=== PATIENT | male | born 1975 | race Caucasian/White ===

== ENCOUNTER 2016-12-31 15:15 | Outpatient (RCR) | payer BC | END 2017-01-14 | disposition home or self-care (01) | LOC: M PT 15:15 | PROVIDERS: ATTEND Physician Assistant | DX: Z51.89 Encounter for other specified aftercare (principal); M25.512 Pain in left shoulder ==

== ENCOUNTER 2017-03-06 11:39 | Emergency (ER) | payer BC ==
[~2017-03-06] VITALS: Ht 167.6 cm; Wt 71.7 kg
[2017-03-06 11:41] VITALS: BP 118/77
[2017-03-06] MEDS ORDERED: HYDR-3713 PO (12:25)
[2017-03-06] MEDS ORDERED: AMOX500C PO (12:25)
== END 2017-03-06 12:31 | disposition home or self-care (01) ==
LOC: M ED 11:39
DX: K02.9 Dental caries, unspecified (principal); R51 Headache; F17.210 Nicotine dependence, cigarettes, uncomplicated; Z88.5 Allergy status to narcotic agent

== ENCOUNTER → 2017-07-06 | Outpatient (CLI) | payer BC ==
[~2017-07-06] MED LIST: AMOX500C PO; HYDR-3713 PO
--- NOTE | 2017-07-06 11:48 | REP ---
Clinical: Trauma. Technique: AP, lateral, bilateral oblique views. Findings: Mild increased sclerosis to the radial surface with decreased radiocarpal joint space may reflect mild degenerative change and should be correlated with symptoms. There is no evidence for acute fracture or dislocation. No subcutaneous emphysema or radiodense foreign body. Impression: Mild degenerative changes at the radiocarpal joint suggested. Signed by Osvaldo Santos MD 07/06/2017 11:39 A
== END ==
LOC: M WUC 11:13
PROVIDERS: ATTEND Physician Assistant
DX: M19.031 Primary osteoarthritis, right wrist (principal)

== ENCOUNTER 2017-12-07 18:51 | Emergency (ER) | payer BC ==
[2017-12-07] MEDS: LIDOCAINE VISCOUS 2% SOLN 15ML UDC SSP (19:18)
[2017-12-07] MEDS: NORCO, ANEXSIA 5/325MG TABLET (HYDROcodone/ACETAMINOPHEN) PO (19:18)
== END 2017-12-07 19:31 | disposition home or self-care (01) ==
LOC: M ED 18:51
DX: K04.7 Periapical abscess without sinus (principal); S02.5XXA Fracture of tooth (traumatic), initial encounter for closed fracture; X58.XXXA Exposure to other specified factors, initial encounter; Y92.89 Other specified places as the place of occurrence of the external cause; Z88.5 Allergy status to narcotic agent
CPT/HCPCS: 99282

== ENCOUNTER 2018-11-29 15:39 | Emergency (ER) | payer BC ==
[~2018-11-29] VITALS: Ht 167.6 cm; Wt 72.7 kg
[~2018-11-29 15:39] MED LIST changes: +CLEO300C2 PO; +HYDR-3715 PO; +LIDO1SOL8 SSP
[2018-11-29 15:40] VITALS: BP 145/88
[2018-11-29] MEDS ORDERED: LIDVISCBTL TOP (16:57)
[2018-11-29] MEDS ORDERED: IBUP-1022 PO (16:57)
[2018-11-29] MEDS ORDERED: CLEO300C2 PO (16:57)
== END 2018-11-29 17:05 | disposition home or self-care (01) ==
LOC: M ED 15:39
DX: K04.7 Periapical abscess without sinus (principal); Z88.5 Allergy status to narcotic agent; F17.210 Nicotine dependence, cigarettes, uncomplicated

== ENCOUNTER 2020-02-03 14:58 | Day surgery (SDC) | payer BC ==
[~2020-02-03] VITALS: Ht 167.6 cm; Wt 74.4 kg
[~2020-02-03 14:58] MED LIST changes: +IBUP-1022 PO; -LIDO1SOL8 SSP; +LIDO2SOL17 SSP; +LIDVISCBTL TOP
[2020-02-03] MEDS ORDERED: E-Z-HD 98% w/w 340GM SUSP BTL As Ordered ONE (15:45)
[2020-02-03] MEDS ORDERED: E-Z-GAS II EFFERVESCENT PACKET (SODIUM BICARB./CITRIC ACID/SIMETHICONE) As Ordered ONE (15:45)
[2020-02-03] MEDS ORDERED: E-Z-PAQUE 96% w/w SUSP 176GM BTL As Ordered ONE (15:45)
[2020-02-03] MEDS ORDERED: GLUCAGON INJ 1MG VIAL IV STA (17:23)
--- NOTE | 2020-02-03 17:51 | REP ---
Esophagram The procedure was performed under the direct supervision of Dr. Pruitt. The images were reviewed with Dr. Pruitt. A single view PA chest x-ray is submitted as a laserist film. The superior mediastinal structures are midline. The heart size is within normal limits. The lungs are clear. Liquid barium was given in the erect position. The oral and pharyngeal stages of deglutition are unremarkable. In the distal esophagus there is a small hiatal hernia with an esophageal food impaction at a narrow Schatzki's B ring. There is esophageal dilation above this. There is small amount of contrast advances through into the stomach. The patient did vomit after a couple of swallows, however. Impression: In the distal esophagus there is a small hiatal hernia with an esophageal food impaction at a narrow Schatzki's B ring. There is esophageal dilation above this. 1 minute of fluoro time was utilized for this procedure. Electronically Signed by JUAN Navarro 02/03/2020 05:20 P Electronically Signed by Calos Pruitt MD 02/03/2020 05:40 P
[2020-02-03] MEDS ORDERED: NS 1,000 ML IV SCH (18:15)
[2020-02-03] MEDS ORDERED: HYDR-3713 PO (18:16)
[2020-02-03] MEDS ORDERED: LORazepam 2 MG/ML VIAL IV STA (18:58)
[2020-02-03] MEDS ORDERED: NICOTINE 21MG/24HR 1 EA TRANSDERMAL TD ONE (20:30)
--- NOTE | 2020-02-03 23:05 | CR.PDOC ---
General Date of Consultation: Feb 03, 2020 Referring Provider: Val Alberts MD Attending Physician: ZAHRA HOUGH MD Consultation Primary physician/ hospitalist: Dr. Travon Willis Reason for consult: Esophageal food impaction HPI: 44 year old male patient with active alcohol use, active smoker, presented to ER for complaints of unable to keep any food down. Patient reports eating sardines for breakfast and since then he is having difficulty in keeping food down including fluids. He is comfortable at rest and not spitting out saliva. In ER patient was evaluated with Esophagogram which showed food impaction. GI was consulted for the same. Pertinent negative GI symptoms: Patient denies fever, sick contacts, recent travel, diarrhea, abdominal pain, loss of appetite, early satiety or unintentional weight loss. No history of hematemesis, melena or hematochezia. Patient reports regular bowel movements. Review of Systems: GI: as stated above CVS: No chest pain, No palpitations, No leg swelling. RS: No Shortness of breath, No Wheezing, no cough WAREHOUSER: No dizziness, No motor weakness, No sensory problems Hematology: No bruising, No gum bleeding, Musculoskeletal: No joint pain, ambulating well. Skin: No rash : No hematuria, No burning sensation of the urine ENT: No ear discharge/ pain, No dysphagia. Eyes: No photophobia. Jaundice Home medications: reviewed. Antithrombotic agents - None Medical h/o: As above. Surgical h/o: None on abdomen. Social h/o: Alcohol Active use , smoking: Active smoker., IVDA/ drugs: Denies . Family h/o of GI cancers - None Prior Endoscopies: None Prior GI evaluations: None in [facility] Exam: Vitals: reviewed General: Alert and oriented x 3, Mild distress from food impaction. HEENT: NO pallor, no icterus. Normal oropharynx, NO cervical lymph nodes. Chest: symmetric with bilateral clear air entry, CVS: S1, S2 heard, normal, no murmurs . Abdomen: non-distended, no surgical scars, soft, non-tender, no palpable masses, normal bowel sounds heard. Rectal exam: Patient refused. Extremities: no pedal edema, pulses palpable. WAREHOUSER: no focal motor or sensory deficits. Moves all extremities Skin: no rash. Labs: reviewed. Imaging: reviewed. Impression: - Esophageal food impaction in patient with poor dentition -- DDx -- rule out esophageal stricture vs Motility disorder vs Poor mastication. Recommendations: - Patient educated about the test results, possible differential diagnoses and All questions answered. - NPO - Will schedule for urgent EGD for esophageal food impaction. - The procedure, indications, risks (bleeding, perforation, infection, hypotension, respiratory depression, allergy, need for endotracheal intubation, surgery, colostomy, cardiac arrest, even ), benefits, limitations (e.g., missing a lesion), and all other alternatives (including no intervention) were explained to the patient who understood and agreed for the procedure. - Post procedure recommendations as per the operative report. Plan of care discussed with patient and primary team. Patient verbalized understanding and agreed with the plan. Addendum post procedure: -- Patient tolerated procedure well. Patient is educated about the procedure results. -- Patient to be discharged as per the protocol. Vital Signs/I&O Vital Signs Date Time Temp Pulse Resp B/P (MAP) Pulse Ox O2 Delivery O2 Flow Rate FiO2 02/03/20 21:45 121/71 (88) 02/03/20 21:43 67 97 02/03/20 17:52 16 Room Air 02/03/20 14:58 98.4 Laboratory Data Microbiology Microbiology 02/03/20 Respiratory Virus Panel (PCR) ([facility]) - Final, Complete Allergies Coded Allergies: oxycodone (Verified Allergy, Unknown, 11/29/18) vomit tramadol (Verified Allergy, Unknown, 11/29/18) vomit codeine (Verified Adverse Reaction, Unknown, 11/29/18) nausea/constipation Home Medications Scheduled PRN Hydrocodone/Acetaminophen (Hydrocodone-Acetamin 5-325 mg) 1 Each Tablet, 1 TAB PO Q6H PRN for PAIN, (Reported) ZAHRA HOUGH MD Feb 03, 2020 23:05
[2020-02-03] MEDS ORDERED: dexameTHASONE 4 MG/ML 1ML VIAL (J1100 PER 1MG) As Ordered ONE (23:16)
[2020-02-03] MEDS ORDERED: ROCURONIUM BROMIDE 50 MG/5 ML VIAL As Ordered ONE (23:16)
[2020-02-03] MEDS ORDERED: fentaNYL 100 MCG/2 ML INJECTION (J3010) As Ordered ONE (23:16)
[2020-02-03] MEDS ORDERED: ONDANSETRON 4MG/2ML VIAL As Ordered ONE (23:16)
[2020-02-03] MEDS ORDERED: MIDAZOLAM INJ 2MG/2ML VIAL (J2250 PER 1MG) As Ordered ONE (23:16)
[2020-02-03] MEDS ORDERED: LIDOCAINE 2% 100MG/5ML SDV (FOR ANES.) As Ordered ONE (23:16)
[2020-02-03] MEDS ORDERED: propofoL 200 MG/20 ML VIAL As Ordered ONE ×2 (23:16→23:18)
[2020-02-03] MEDS ORDERED: SUCCINYLCHOLINE 100 MG/5 ML SYRINGE (J0330) As Ordered ONE (23:16)
[2020-02-03] MEDS ORDERED: METOCLOPRAMIDE INJ 10MG/2ML VIAL (J2765 PER 1) As Ordered ONE (23:38)
--- NOTE | 2020-02-03 23:39 | ROOR ---
Patient Name: Sky Baumann Procedure Date: 02/03/2020 10:55 PM Date of : 1975 Age: 44 Room: Main OR Gender: Male Note Status: Finalized Procedure: Upper GI endoscopy Indications: Foreign body in the esophagus Providers: Benjamin Woodard MD Referring MD: Val Alberts MD Requesting Provider: Medicines: Monitored Anesthesia Care Complications: No immediate complications. Procedure: Pre-Anesthesia Assessment: - Prior to the procedure, a History and Physical was performed, and patient medications and allergies were reviewed. The patient is competent. The risks and benefits of the procedure and the sedation options and risks were discussed with the patient. All questions were answered and informed consent was obtained. Patient identification and proposed procedure were verified by the physician, the nurse and the anesthesiologist in the procedure room. Mental Status Examination: alert and oriented. Airway Examination: normal oropharyngeal airway and neck mobility. Respiratory Examination: clear to auscultation. CV Examination: normal. Prophylactic Antibiotics: The patient does not require prophylactic antibiotics. Prior Anticoagulants: The patient has taken no previous anticoagulant or antiplatelet agents. ASA Grade Assessment: II - A patient with mild systemic disease. After reviewing the risks and benefits, the patient was deemed in satisfactory condition to undergo the procedure. The anesthesia plan was to use monitored anesthesia care (MAC). Immediately prior to administration of medications, the patient was re-assessed for adequacy to receive sedatives. The heart rate, respiratory rate, oxygen saturations, blood pressure, adequacy of pulmonary ventilation, and response to care were monitored throughout the procedure. The physical status of the patient was re-assessed after the procedure. The Endoscope was introduced through the mouth, and advanced to the second part of duodenum. The upper GI endoscopy was accomplished without difficulty. The patient tolerated the procedure well. Findings: Food was found in the distal esophagus. Removal was accomplished with a Edwards net. There is no endoscopic evidence of stricture or ulcerations in the entire esophagus. The Z-line was regular and was found 40 cm from the incisors. No gross lesions were noted in the entire examined stomach. The duodenal bulb and second portion of the duodenum were normal. Impression: - Food was found in the esophagus. Removal was successful. - Z-line regular, 40 cm from the incisors. - No gross lesions in the stomach. - Normal duodenal bulb and second portion of the duodenum. Recommendation: - Patient has a contact number available for emergencies. The signs and symptoms of potential delayed complications were discussed with the patient. Return to normal activities tomorrow. Written discharge instructions were provided to the patient. - Full liquid diet for 1 day, then advance as tolerated to chopped diet. - Consider referral to Dental clinic for evaluation and management of poor dentition by primary physician. - Return to primary care physician. Benjamin Woodard MD Benjamin Woodard MD 02/03/2020 11:38:51 PM Electronically signed by Benjamin Woodard MD Number of Addenda: 0 Note Initiated On: 02/03/2020 10:55 PM Estimated Blood Loss: Estimated blood loss was minimal.
[2020-02-03] MEDS ORDERED: HYDROMORPHONE HCL 0.5 MG/ 0.5 ML SYRINGE (J1170 PER 1) IV PRN (23:45)
[2020-02-03] MEDS ORDERED: LR 1,000 ML IV SCH (23:45)
[2020-02-03] MEDS ORDERED: ONDANSETRON 4MG/2ML VIAL IV PRN (23:45)
[2020-02-03] MEDS ORDERED: fentaNYL 100 MCG/2 ML INJECTION (J3010) IV PRN (23:45)
[2020-02-03 23:56] VITALS: BP 119/70
[2020-02-04 00:11] VITALS: BP 121/72
[2020-02-04 00:39] VITALS: BP 118/73
== END 2020-02-04 00:50 | disposition home or self-care (01) ==
LOC: M ED 14:58 → M SDC 21:57
PROVIDERS: ATTEND Internal Medicine Gastroenterology
DX: T18.128A Food in esophagus causing other injury, initial encounter (principal); T17.208A Unspecified foreign body in pharynx causing other injury, initial encounter; Y92.000 Kitchen of unspecified non-institutional (private) residence as the place of occurrence of the external cause; Y93.89 Activity, other specified; Y99.9 Unspecified external cause status; Z88.5 Allergy status to narcotic agent; F17.218 Nicotine dependence, cigarettes, with other nicotine-induced disorders
CPT/HCPCS: 43247; 74220; 87486; 87581; 87633; 87798; 96374; 99285; J0330; J1100; J1610; J2250; J2405; J2765; J3010

== ENCOUNTER 2025-03-13 21:24 | Emergency (ER) | payer SELFPAY ==
[~2025-03-13] VITALS: Ht 165.1 cm; Wt 67.5 kg
[~2025-03-13 21:24] MED LIST changes: +LIDO15SO8 SSP; -LIDO2SOL17 SSP
[2025-03-13 21:27] VITALS: TEMP 97.7
[2025-03-14 00:45] VITALS: BP 140/95
[2025-03-14] MEDS ORDERED: NYST-38 PO (00:57)
[2025-03-14 01:00] VITALS: O2SAT 98
[2025-03-14] MEDS: NYSTATIN 500,000 UNITS/5 ML SUSP UDC PO ONE (01:13)
== END 2025-03-14 01:17 | disposition home or self-care (01) ==
LOC: M ED 21:24
DX: B37.0 Candidal stomatitis (principal); F17.200 Nicotine dependence, unspecified, uncomplicated; F10.10 Alcohol abuse, uncomplicated; Z88.5 Allergy status to narcotic agent; Z79.1 Long term (current) use of non-steroidal anti-inflammatories (NSAID)